=== PATIENT | female | born 1990 ===

== ENCOUNTER 2017-11-01 07:55 | Inpatient (IN) | payer OTHER ==
[2017-11-01 09:42] LABS: BASO % 0.3 % (0.0-2.0); EOS # 0.2 K/uL (0.0-0.7); HEMOGLOBIN 12.4 g/dL (11.0-16.0); LYMPH # 1.9 K/uL (1.0-4.3); LYMPH % 17.9 % (20.0-40.0); MEAN CELL VOLUME 87.8 fL (81.0-99.0); MEAN CORPUSCULAR HEMOGLOBIN 30.8 pg (27.0-31.0); MEAN CORPUSCULAR HGB CONC 35.1 g/dL (33.0-37.0); MEAN PLATELET VOLUME 9.5 fL (7.2-11.7); MONO # 0.7 K/uL (0.0-0.8); MONO % 7.2 % (0.0-10.0); NEUT # 7.5 K/uL (1.8-7.0); NEUT % 72.6 % (50.0-75.0); RBC 4.04 Mil/uL (3.80-5.20); RED CELL DISTRIBUTION WIDTH 16.9 % (11.5-14.5); WHITE BLOOD COUNT 10.4 K/uL (4.8-10.8)
[2017-11-01 09:48] LABS: SQUAMOUS EPITHIAL 4 /hpf (0-5); URINE BILIRUBIN NEGATIVE (NEGATIVE); URINE BLOOD NEGATIVE (NEGATIVE); URINE CLARITY Clear (Clear); URINE COLOR Yellow (YELLOW); URINE GLUCOSE (UA) NORMAL (Normal); URINE LEUKOCYTE ESTERASE NEG Leu/uL (Negative); URINE PROTEIN NEGATIVE (NEGATIVE); URINE UROBILINOGEN NORMAL mg/dL (0.2-1.0)
[2017-11-01 09:53] LABS: ALB/GLOB RATIO 0.9 (1.0-2.1); ALBUMIN 3.1 g/dL (3.5-5.0); ALT/SGPT 16 U/L (9-52); AST/SGOT 28 U/L (14-36); BLOOD UREA NITROGEN 9 mg/dL (7-17); GFR AFRICAN-AMERICAN > 60; GFR NON-AFRICAN AMERICAN > 60
[2017-11-01] MEDS: Dextrose 5%/Lactated Ringer's 1,000 ML IV SCH (10:05)
--- NOTE | 2017-11-01 10:20 | OBHP ---
Datetime: 11/01/2017 10:15 IP Adm Impression: Term, intrauterine IP Admit Plan: Admit to unit Admit Comment, IP Provider: @ 38 wks GA hx of GDMA2 on glburide c/o vaginal bleeding and dsicha rge since Wednesday mroning and crmaping increaseing intensty adn fruqency, bright red, no blood clots w ith cramping q 5-10 min 6/10, deisre pain medicaion. pt dnie slof, +FM OB: GDMA2 REPORTS ANALYST: dnies hx of anobmral pap, fiboidf,s ovairna cyst, STI PMH: RA, GDMA2 PSH: dnies MEDS: PNV, glyburide SHX: negaitve etoh/tobacco.drugs NKDA A/P @ 38 wks GA with IOL for GDMA and oligohydrmaisn -admit to L+D curator [facility], ivf bedside sonogram katia 4.5cm, no evidcne of placenta previa cytoce pain mangment con tcurent mange blood glucose q 4 hour D5LR Pelvic Type - PN: Adequate Extremities - PN: Normal Abdomen - PN: Normal Back - PN: Normal Breast - PN: Normal Lungs - PN: Normal Heart - PN: Normal Thyroid - PN: Normal Neurologic - PN: Normal HEENT - PN: Normal General - PN: Normal Weight - Estimated: 3400 Presentation-Admit: Vertex FHR - Baseline A Provider: 140 Gestation - Est Wks by US: 38.0 IP Hx Assessment: The History has been Reviewed and is Current EGA AdmitDate IP: 38.0 Vital Signs Provider: Reviewed; Within Normal Limits IP Chief Complaint: Suspected ruptured membranes NICHD Variability Prov Fetus A: Moderate 6-25bpm FHR Category Provider Fetus A: Category I NICHD Decel Fetus A IP Provider: None Dilatation, Provider: 2 Effacement, Provider: 50 Station, Provider: -3 Genitourinary Exam: Normal DTRs - PN: Normal
[2017-11-01] MEDS ORDERED: Fentanyl/Bupivacaine HCl 250 ML EPI ONE (12:34)
[2017-11-01] MEDS ORDERED: Bupivacaine HCl 0.25% PF (30 ml) Inj ONE (12:38)
[2017-11-01] MEDS ORDERED: Bupivacaine HCl 0.25% PF (10 ml) Inj ONE (12:39)
--- NOTE | 2017-11-01 12:51 | OBPN ---
Datetime: 11/01/2017 12:49 IP Progress Impression: Normal progression of labor IP Progress Plan: Continue present management Membranes, Provider: Intact FHR - Baseline A Provider: 130 Gestation - Est Wks by US: 38.0 IP Progress Note Comment: pt sharon and examien rperots pain is 03/30 requesitn medicaion , vss fs wnl ve; 4cm A/P @ 38 wks GA IOL for GDMA s/p cytotec for pain mangment, epidural consult cont current mangnet Vital Signs Provider: Reviewed; Within Normal Limits NICHD Variability Prov Fetus A: Moderate 6-25bpm Dilatation, Provider: 4 Effacement, Provider: 60 Station, Provider: -2 NICHD Decel Fetus A IP Provider: None Datetime: 11/01/2017 10:15 Weight - Estimated: 3400 Presentation-Admit: Vertex FHR Category Provider Fetus A: Category I
[2017-11-01] MEDS ORDERED: Oxytocin 30 UNIT 30 UNITS/500 ML BAG IV SCH (14:15)
[2017-11-01] MEDS ORDERED: Oxytocin 30 UNIT 30 UNITS/500 ML BAG IV ONE (14:22)
--- NOTE | 2017-11-01 18:01 | OBPN ---
Datetime: 11/01/2017 17:59 IP Progress Impression: Normal progression of labor IP Progress Plan: Continue present management Membranes, Provider: Ruptured FHR - Baseline A Provider: 135 Gestation - Est Wks by US: 38.0 IP Progress Note Comment: pt sharon and examiend c/o prssure s/p peidural VSS bloodglucse 78 VE: 9/100/0 A/P @ 38 wks GA GDMA in acitve labor -con tcurrent managment Vital Signs Provider: Reviewed; Within Normal Limits NICHD Variability Prov Fetus A: Moderate 6-25bpm Dilatation, Provider: 9 Effacement, Provider: 100 Station, Provider: 0
[2017-11-01] MEDS ORDERED: cefOXitin IV 2 gm in Saline 2 GM in Sodium Chloride 0.9% 50 ML IV STA (21:21)
[2017-11-01] MEDS ORDERED: Sodium Citrate/Citric Acid 15 ml Sol PO STA (21:21)
[2017-11-01] MEDS ORDERED: Sodium Citrate/Citric Acid 15 ml Sol ONE (21:33)
[2017-11-01] MEDS ORDERED: cefOXitin IV 2 gm in Saline 2 GM/50 ML BAG IVPB ONE (21:33)
[2017-11-01] MEDS ORDERED: cefOXitin IV 2 gm in Saline 2 GM in Sodium Chloride 0.9% 100 ML IV STA (21:34)
--- NOTE | 2017-11-01 21:35 | OBPN ---
Datetime: 11/01/2017 21:26 IP Progress Impression: Arrest of dilatation/descent IP Informed Consent Obtain: Section Delivery IP Progress Plan: Deliver- Section Membranes, Provider: Ruptured FHR - Baseline A Provider: 150 Gestation - Est Wks by US: 38.0 Presentation-Admit: Vertex IP Progress Note Comment: pt seen and examiend , arrest of desecent r/ba//i of pltcs dw patient consent obtained preop antioics abdomian prep hooks to graivty scs Vital Signs Provider: Reviewed; Within Normal Limits NICHD Variability Prov Fetus A: Moderate 6-25bpm Dilatation, Provider: 10 Effacement, Provider: 100 Station, Provider: 0
[2017-11-01] MEDS ORDERED: Oxytocin 20 units in LR 2,000 ML IV ONE (21:44)
--- NOTE | 2017-11-01 22:31 | DELATT ---
Datetime: 11/01/2017 09:05 Del Note Departure Status: Nursery Del Note Time: 30 Del Note Status: term male inf of diabetic mother on glyburide Del Note Attendant 2: Misael Wisdom Note Attendant Role 2: MD Farris Attendant Role 1: MD Farris Attendant 1: Deepak Farris Reason for Attend Other: primary Del Note Interventions Oth: Dr Johan Lawrence asked me to attend this primary c/s done because of failure t o descent Del Note Interventions: Assessment; Stimulation; Drying Del Note Reason for Attending: Section ARTURO/NICU Del Atten Note Adm
[2017-11-01] MEDS ORDERED: Morphine 1 mg/ml preservative-free Inj(Duramorph) ONE (22:43)
--- NOTE | 2017-11-01 22:50 | NBADN ---
Datetime: 11/01/2017 22:30 Nsy Prov Gen Appearance: Within Normal Limits Nsy Prov Gen Appearance: Within Normal Limits Nsy Prov Skin: Within Normal Limits Nsy Prov Neuro: Normal Tone; [place]; Grasp; Root; Suck Nsy Prov Musculoskeletal: Within Normal Limits; Full Range of Motion; Spontaneous Movement All Extre mities; Intact Clavicles; Clavicles without Crepitus; Gluteal Folds Symmetrical; Spine Within Normal Limits; No Sacral Dimple/Cyst Nsy Prov Head: Normal Fontanelles; Normocephalic; Sutures WNL Nsy Prov EENT: Mouth Within Normal Limits; Ears Within Normal Limits; Eyes Within Normal Limits; Eye s Red Reflex Bilaterally; Nose Within Normal Limits; Face Within Normal Limits Nsy Prov Cardiovascular: Within Normal Limits; Normal Pulses Nsy Prov Respiratory: Within Normal Limits Nsy Prov GI: Within Normal Limits; Soft; Normal Liver; Non Palpable Spleen; Patent Anus Nsy Prov Umbilicus: Within Normal Limits; Three Vessel Cord Nsy Prov : Normal Male Genitalia Nsy Prov Impression: Healthy Term ; Vital Signs Appropriate; Bonding Appropriately; Voiding a nd Stooling Nsy Prov Plan: Continue Bascom Care Nsy Prov Impression/Plan Details: term male inf of diabetic mother Nsy Prov Laboratory: accucheck Datetime: 11/01/2017 09:05 Mother's Rule Inc Maternal Age: Age >=35 at [place] not specified Mother's Rule Thalassemia: Thalassemia History not specified Mother's Rule Neural Tube Defect: Neural Tube Defect History not specified Mother's Rule Congenital Heart: Congenital Heart Defect not specified Mother's Rule Down Syndrome: Down Syndrome History not specified Mother's Rule Sánchez-Sachs: Sánchez-Sachs History not specified Mother's Rule Jose R: Jose R History not specified Mother's Rule Familial Dysauto: Familial Dysautonomia History not specified Mother's Rule Sickle Cell: Sickle Cell Disease/Trait History not specified Mother's Rule Hemophilia: Hemophilia/Blood Disorder History not specified Mother's Rule Muscular Dystrophy: Muscular Dystrophy History not specified Mother's Rule Cystic Fibrosis: Cystic Fibrosis History not specified Mother's Rule Vestal's Chor: Vestal's Chorea History not specified Mother's Rule Mental Retardation: Mental Retardation/Autism History not specified Mother's Rule Fragile X: Fragile X Testing History not specified Mother's Rule Oth Inherited DO: Other Inherited/Chromosomal Disorders not specified Mother's Rule Maternal Metabolic: Maternal Metabolic History not specified Mother's Rule FOB Defects: Pt Father or FOB Defect History not specified Mother's Rule Hx Stillborn MBL: Loss/Stillborn History not specified Mother's Rule Other Genetic Hx: Other Genetic History not specified Mother's Rule Drugs/Medications: Drugs/Medications History not specified Mother's Rule Gonorrhea: Gonorrhea History Not Specified Mother's Rule Chlamydia: Chlamydia History not specified Mother's Rule Syphilis: Syphilis History not specified Mother's Rule HIV/AIDS Exp: HIV/Aids Exposure not specified Mother's Rule HPV: Human Papillomavirus History not specified Mother's Rule Genital Herpes: Genital Herpes not specified Mother's Rule TB: Tuberculosis History not specified Mother's Rule Hepatitis: Hepatitis History Not Specified Mother's Rule Rash or Viral Ill: Rash or Viral Illness History not specified Mother's Rule Diabetes: Diabetes History not specified Mother's Rule Hypertension MBL: History of Hypertension Not Specified Mother's Rule Heart Disease: Heart Disease History not specified Mother's Rule Autoimmune: Autoimmune Disorder History not specified Mother's Rule Kidney Disease: History of Kidney Disease/UTI not specified Mother's Rule Neurologic: Neurologic/Epilepsy Disorders not specified Mother's Rule Psych Disorders: Psychiatric Disorder History not specified Mother's Rule Depression/PP Dep: Depression/ Depression History not specified Mother's Rule Hepaitis/tLiver: History of Hepatitis/Liver Disease not specified Mother's Rule Varicos/Phlebitis: Varicosities/Phlebitis History Not Specified Mother's Rule Thyroid Dysfunct: Thyroid Dysfunction not specified Mother's Rule Trauma/Violence: Trauma/Violence History Not Specified Mother's Rule Blood Transfusion: Blood Transfusion History not specified Mother's Rule Sensitization: D (Rh) Sensitization not specified Mother's Rule Pulmonary: Pulmonary (Asthma, TB) History not specified Mother's Rule Breast: Breast History not specified Mother's Rule Event Lighting Specialist Surgery: Event Lighting Specialist Surgery Hx not specified Mother's Rule Hosp/Surgery: Hospitalization/Surgery History not specified Mother's Rule Anesthetic Comp: Anesthetic Complications Hx not specified Mother's Rule Abnormal Pap: Abnormal Pap Smear not specified Mother's Rule Uterine Anomaly: Uterine Anomaly/ALIA not specified Mother's Rule Infertility: Infertility Not Specified Mother's Rule ART Treatment: ART Treatment History not specified Mother's Rule Other Med Disease: Other Medical Diseases History not specified Mother's Rule Family History: Significant Family History not specified
--- NOTE | 2017-11-01 22:52 | OBDS ---
MATERNAL INFORMATION Provider Comments: PLTCS live make ifnat apgars 9,9 pediatircian presnet for delivery, ebl 800 ml compound presnstation arrest of descent weight of 6lbs 11 ounces LABOR SUMMARY EDC: 11/15/2017 00:00 No. Babies in Womb: 1 Attempted: No Labor Anesthesia: Epidural LABOR INFORMATION Reason for Induction: Maternal Diabetes Onset of Labor: 11/01/2017 11:56 Complete Dilatation: 11/01/2017 17:51 Cervical Ripening Agents: Cytotec @ (Annotations: [address] otero intravaginally) Oxytocin: Augmentation Group B Beta Strep: Negative Antibiotics # of Doses: 0 Antibiotics Time of Last Dose: 0 Steroids Given: None Reason Steroids Not Administered: Not Applicable MEMBRANES Membranes Rupture Method: Spontaneous Rupture of Membranes: 11/01/2017 14:58 Length of Rupture (hrs): 7.00 Amniotic Fluid Color: Clear Amniotic Fluid Amount: None Amniotic Fluid Odor: None STAGES OF LABOR Stage 1 hrs: 5 Stage 1 min: 55 Stage 2 hrs: 4 Stage 2 min: 7 Stage 3 hrs: 0 Stage 3 min: 1 Total Time in Labor hrs: 10 Total Time in Labor min: 3 BABY A INFORMATION Infant Delivery Date/Time: 11/01/2017 21:58 Method of Delivery: Born in Route : No : N/A Forceps: N/A Vacuum Extraction: N/A Shoulder Dystocia : No SHOULDER DYSTOCIA BABY A Delivery Date/Time: 11/01/2017 21:58 PRESENTATION/POSITION BABY A Presentation: Cephalic Cephalic Presentation: Vertex Breech Presentation: N/A PLACENTA INFORMATION BABY A Placenta Delivery Time : 11/01/2017 21:59 Placenta Method of Delivery: Manual Removal Placenta Status: Delivered SCORES BABY A Heart Rate 1 min: >100 bpm Resp Effort 1 min: Good Cry Reflex Irritability 1 min: Cough or Sneeze or Pulls Away Muscle Tone 1 min: Active Motion Color 1 min: Body [place], Extremities Blue Resuscitation Effort 1 min: N/A SCORE 1 MIN: 9 Heart Rate 5 min: >100 bpm Resp Effort 5 min: Good Cry Reflex Irritability 5 min: Cough or Sneeze or Pulls Away Muscle Tone 5 min: Active Motion Color 5 min: Body [place], Extremities Blue Resuscitation Effort 5 min: N/A SCORE 5 MIN: 9 INFANT INFORMATION BABY A Gestational Age at Delivery: 38.0 Gestational Status: Term Infant Outcome : Liveborn Infant Condition : Stable Sex: Male IDENTIFICATION/MEDS BABY A ID Band Number: [id number] ID Band Location: Left Leg; Left Arm Sensor Applied: Yes Sensor Number: [id number] Sensor Location : Cord Clamp Vitamin K Given : Not Given Erythromycin Given: Not Given WEIGHT/LENGTH BABY A Birthweight (gms): 3030 Weight (lb): 6 Infant Weight (oz): 11 Length Inches: 19.00 Length cms: 48.3 CORD INFORMATION BABY A No. Cord Vessels: #3 Nuchal Cord : N/A Cord Blood Taken: Yes (Annotations: Data stored by N on behalf of user) ASSESSMENT BABY A Complications: None Physical Findings at Delivery: Within Normal Limits Respirations: Appears Normal Securities Dealer/ALS Called : Yes Infant Care By: DR MARTINEZ / DALY HSU RN Transferred To: Nursery
--- NOTE | 2017-11-01 22:58 | PCM.SURG1 ---
Surgeon's Initial Post Op Note - Surgeon's Notes Surgeon: Catarina Lawrence MD Philosophy Faculty: Elías Douglas MD Type of Anesthesia: Other Pre-Operative Diagnosis: Term intrautiern eprengancy, arrest of descent, GDMA2 Operative Findings: live male , agpar 9,9 compound presentation weight of 6lbs 1 1ounces wrapper dipper present for delivery. normal appearing uteurs, tubes and ovariens bilaterally. Dr Ugo Douglas was hospital clinic assistant and prsent for entire case and essential in gainign entry, retraction, expsure, holing bladder blade, closeing all layers, pushing head up , obtianign hemostias. Post-Operative Diagnosis: same as above Operation Performed: Primary Low transverse cesearen section Specimen/Specimens Removed: placenta Estimated Blood Loss: EBL {In ML}: 800 Blood Products Given: N/A Drains Used: No Drains Post-Op Condition: Good Date of Surgery/Procedure: 11/01/17 Time of Surgery/Procedure: 21:30
--- NOTE | 2017-11-02 06:59 | OBPPN ---
Datetime: 11/02/2017 06:58 PP Pain Prov: Within normal limits PP Nausea Prov: Denies PP Flatus Prov: No PP BM Prov: No PP Breasts Prov: Normal PP Heart Prov: Normal PP Lungs Prov: Normal PP Abdomen/Uterus Prov: Normal PP Lochia Prov: Normal PP Vulva/Perineum Prov: Normal PP CVA Tenderness Prov: Normal PP Extremities Prov: Normal PP C/S Incision Prov: Normal PP Progress Prov: Normal PP Impression Prov: Normal progression PP Plan Prov: Continue present management PP Progress Note Prov: pt seen and examiend adn reprots pain controlled with medicaion. pt dnei any fever, chills, naue, vomitign, cp, sob. pt not yet ambaitng, +hooks cathether, not passign flatu, toe lrating liuid and is breat feeding VSS PE GEN NAD AA ox 3 RESP CTAB?l CVS: RRR< +S1/S2 BREAST NT, NOn engorage db/l ABD: soft, NT/ND, +BS FUNDUS: Firm, at level o fumbilcs VE: minimal lochia, non foul smelling EXT: no calef tendnerness, engaive homans sign A/P s/p PLTCS POD #1 with RA -Pain manamgnet: perocet/motirn -Advance diet at tolerated -dc hooks -encourage breast feedign adn mabuaiton -bowel ergime -Incentive spirometer -lacation consulta -RA meds -am labs -cont routine postop care Vital Signs Provider PP: Reviewed; Within Normal Limits
[2017-11-02 08:19] LABS: BASO % 0.1 % (0.0-2.0); LYMPH # 1.7 K/uL (1.0-4.3); MEAN CORPUSCULAR HEMOGLOBIN 30.1 pg (27.0-31.0); MEAN CORPUSCULAR HGB CONC 34.2 g/dL (33.0-37.0); MONO # 0.8 K/uL (0.0-0.8); MONO % 4.3 % (0.0-10.0); NEUT # 16.3 K/uL (1.8-7.0); NEUT % 86.6 % (50.0-75.0); PLATELET COUNT 163 K/uL (130-400); RBC 3.41 Mil/uL (3.80-5.20); RED CELL DISTRIBUTION WIDTH 16.9 % (11.5-14.5)
[2017-11-02 08:20] LABS: HEMOGLOBIN 10.3 g/dL (11.0-16.0); WHITE BLOOD COUNT 18.8 K/uL (4.8-10.8)
[2017-11-02 08:25] LABS: ALB/GLOB RATIO 0.7 (1.0-2.1); ALT/SGPT 30 U/L (9-52); AST/SGOT 43 U/L (14-36); BLOOD UREA NITROGEN 6 mg/dL (7-17); CALCIUM 8.6 mg/dl (8.6-10.4); GFR AFRICAN-AMERICAN > 60; GFR NON-AFRICAN AMERICAN > 60
--- NOTE | 2017-11-02 09:00 | OP ---
PROCEDURE DATE: 11/01/2017 SURGEON: Catarina Lawrence MD JOURNEYMAN MACHINIST: Elías Douglas MD TYPE OF ANESTHESIA: Combined spinal and epidural. PREOPERATIVE DIAGNOSES: Term intrauterine , arrest of descent, gestational diabetic type 2, on glyburide. POSTOPERATIVE DIAGNOSES: Term intrauterine , arrest of descent, gestational diabetic type 2, on glyburide. OPERATIVE FINDINGS: Live male infant, Apgars 9 and 9, oblique presentation, weight 6 pounds 11 ounces, ice guard skating rink present for delivery. Normal-appearing uterus, tubes and ovaries bilaterally. Dr. Elías Douglas, the surgical assist, was present for the entire case and was essential in gaining entry, retraction, exposure, holding the bladder blade, closing all layers, pushing the head up, obtaining hemostasis. OPERATION PERFORMED: Primary low transverse section. SPECIMEN REMOVED: Placenta. ESTIMATED BLOOD LOSS: 800 mL. BLOOD PRODUCTS: None. COMPLICATIONS: None. DESCRIPTION OF PROCEDURE: The patient was in induction of labor secondary to gestational diabetes and was found to be arrest of descent. The risks, benefits, alternatives, and indications of section discussed with the patient. The patent consented and was transferred to the operating room where she was given preoperative prophylactic antibiotic. A Pfannenstiel skin incision was made with a scalpel and carried down to the underlying layer of the fascia with the Bovie. The fascia was incised in the midline and the incision was extended laterally with the Bovie. The rectus muscle was then bluntly in the midline bluntly. The peritoneum was identified in clear space. The incision was extended laterally and superiorly, there was good visualization of the bladder. The lower end of the Heather was then inserted. The lower uterine segment was incised in a transverse fashion. The lower uterine segment was incised laterally and bluntly. The assistant professor of art's hand entered into the vagina and pushed the head up and head was delivered compound with the arm through the uterine incision simultaneously followed by delivery of shoulders, and delivery of body. Both oral and nasal passages were bulb suctioned. The umbilical cord was clamped and cut. Baby was handed off to the awaiting ice guard skating rink. Cord blood and cord gases were collected and sent x2. The placenta was then delivered manually. The uterus was exteriorized, cleared of clots and debris. The uterine incision was repaired with 0-Vicryl in a running continuous locked fashion. A second layer of the same suture was used to close the uterus in a running imbricated manner. Good hemostasis was noted at the uterine incision site. The uterus was then returned to the abdomen. There was normal tubes and ovaries. The paracolic gutters were cleared of all clots and debris. The peritoneum was reapproximated with 2-0 chromic in a running continuous fashion. The rectus was reapproximated and closed with 2-0 chromic in an interrupted manner. The fascia was reapproximated with 0-Vicryl in running subcuticular fashion. The subcutaneous layer was closed with 2-0 plain in an interrupted manner. Skin was reapproximated and closed with 4-0 Monocryl in a running subcuticular fashion. At the end of the procedure, all needles, sponge, and instrument counts were noted as correct x2. The patient tolerated the procedure well and was transferred to the recovery room in stable condition. Catarina Lawrence MD
[2017-11-02 09:59] LABS: ANISOCYTOSIS SLIGHT; BANDS 11 % (0-2); LYMPHOCYTE 10 % (20-40); MONOCYTE 1 % (0-10); NEUTROPHIL 78 % (50-75); PLATELET ESTIMATE NORMAL (NORMAL); TOTAL CELLS COUNTED 100
[2017-11-02] MEDS: Simethicone 80 mg Chewtab PO SCH ×4 (11:04→22:38)
[2017-11-02] MEDS: Oxycodone/Acetaminophen 5/325 mg Tab PO PRN ×3 (11:11→23:03)
[2017-11-02] MEDS: AMPicillin 2 GM in Sodium Chloride 100 ML IVPB SCH ×3 (11:30→23:20)
[2017-11-03] MEDS: Oxycodone/Acetaminophen 5/325 mg Tab PO PRN ×4 (04:02→21:05)
[2017-11-03] MEDS: AMPicillin 2 GM in Sodium Chloride 100 ML IVPB SCH ×4 (04:33→23:47)
[2017-11-03 07:50] LABS: BASO % 0.2 % (0.0-2.0); EOS # 0.2 K/uL (0.0-0.7); EOS % 0.9 % (0.0-4.0); HEMOGLOBIN 9.7 g/dL (11.0-16.0); LYMPH # 1.9 K/uL (1.0-4.3); LYMPH % 9.6 % (20.0-40.0); MEAN CELL VOLUME 88.1 fL (81.0-99.0); MEAN CORPUSCULAR HEMOGLOBIN 30.8 pg (27.0-31.0); MEAN PLATELET VOLUME 8.4 fL (7.2-11.7); MONO % 4.9 % (0.0-10.0); NEUT # 17.1 K/uL (1.8-7.0); NEUT % 84.4 % (50.0-75.0); PLATELET COUNT 164 K/uL (130-400); RBC 3.16 Mil/uL (3.80-5.20); RED CELL DISTRIBUTION WIDTH 17.1 % (11.5-14.5); WHITE BLOOD COUNT 20.3 K/uL (4.8-10.8)
[2017-11-03 08:20] LABS: ALB/GLOB RATIO 0.8 (1.0-2.1); ALBUMIN 2.1 g/dL (3.5-5.0); ALT/SGPT 31 U/L (9-52); AST/SGOT 52 U/L (14-36); BLOOD UREA NITROGEN 5 mg/dL (7-17); CALCIUM 8.4 mg/dl (8.6-10.4); GFR AFRICAN-AMERICAN > 60; GFR NON-AFRICAN AMERICAN > 60
[2017-11-03 10:02] LABS: ANISOCYTOSIS SLIGHT; BANDS 4 % (0-2); LYMPHOCYTE 10 % (20-40); MONOCYTE 5 % (0-10); NEUTROPHIL 81 % (50-75); PLATELET ESTIMATE NORMAL (NORMAL); TOTAL CELLS COUNTED 100
[2017-11-03] MEDS: Simethicone 80 mg Chewtab PO SCH ×4 (10:10→23:48)
[2017-11-03 16:09] LABS: SQUAMOUS EPITHIAL 2 /hpf (0-5); URINE BACTERIA FEW (<OCC); URINE BILIRUBIN NEGATIVE (NEGATIVE); URINE BLOOD 2+ (NEGATIVE); URINE CLARITY Clear (Clear); URINE COLOR Yellow (YELLOW); URINE GLUCOSE (UA) NORMAL (Normal); URINE LEUKOCYTE ESTERASE TRACE Leu/uL (Negative); URINE PROTEIN NEGATIVE (NEGATIVE); URINE UROBILINOGEN NORMAL mg/dL (0.2-1.0)
[2017-11-03 17:20] LABS: BASO # 0.1 K/uL (0.0-0.2); BASO % 0.3 % (0.0-2.0); EOS # 0.4 K/uL (0.0-0.7); HEMOGLOBIN 9.2 g/dL (11.0-16.0); LYMPH # 2.3 K/uL (1.0-4.3); MEAN CELL VOLUME 88.7 fL (81.0-99.0); MEAN CORPUSCULAR HEMOGLOBIN 29.8 pg (27.0-31.0); MEAN CORPUSCULAR HGB CONC 33.5 g/dL (33.0-37.0); MEAN PLATELET VOLUME 8.6 fL (7.2-11.7); MONO % 5.1 % (0.0-10.0); NEUT # 15.5 K/uL (1.8-7.0); NEUT % 80.6 % (50.0-75.0); RBC 3.08 Mil/uL (3.80-5.20); RED CELL DISTRIBUTION WIDTH 16.8 % (11.5-14.5); WHITE BLOOD COUNT 19.2 K/uL (4.8-10.8)
[2017-11-03] MEDS ORDERED: Bisacodyl 5mg EC Tab PO ONE (22:54)
[2017-11-04] MEDS: Dextrose 5%/Lactated Ringer's 1,000 ML IV SCH (05:34)
[2017-11-04] MEDS: Oxycodone/Acetaminophen 5/325 mg Tab PO PRN ×3 (05:45→21:26)
[2017-11-04] MEDS: AMPicillin 2 GM in Sodium Chloride 100 ML IVPB SCH ×3 (06:23→16:08)
[2017-11-04 08:31] LABS: BASO % 0.2 % (0.0-2.0); EOS # 0.4 K/uL (0.0-0.7); EOS % 2.7 % (0.0-4.0); HEMOGLOBIN 8.9 g/dL (11.0-16.0); LYMPH # 2.9 K/uL (1.0-4.3); LYMPH % 18.8 % (20.0-40.0); MEAN CELL VOLUME 88.2 fL (81.0-99.0); MEAN CORPUSCULAR HEMOGLOBIN 30.4 pg (27.0-31.0); MEAN CORPUSCULAR HGB CONC 34.5 g/dL (33.0-37.0); MEAN PLATELET VOLUME 8.6 fL (7.2-11.7); MONO # 0.7 K/uL (0.0-0.8); MONO % 4.6 % (0.0-10.0); NEUT # 11.2 K/uL (1.8-7.0); NEUT % 73.7 % (50.0-75.0); NRBC % 0.1 % (0.0-2.0); RBC 2.94 Mil/uL (3.80-5.20); RED CELL DISTRIBUTION WIDTH 16.5 % (11.5-14.5); WHITE BLOOD COUNT 15.2 K/uL (4.8-10.8)
[2017-11-04 08:49] LABS: ALB/GLOB RATIO 0.7 (1.0-2.1); ALBUMIN 2.1 g/dL (3.5-5.0); ALT/SGPT 24 U/L (9-52); AST/SGOT 39 U/L (14-36); BLOOD UREA NITROGEN 3 mg/dL (7-17); CALCIUM 7.5 mg/dl (8.6-10.4); GFR AFRICAN-AMERICAN > 60; GFR NON-AFRICAN AMERICAN > 60
[2017-11-04] MEDS: Simethicone 80 mg Chewtab PO SCH ×4 (09:25→21:25)
[2017-11-04] MEDS ORDERED: Potassium Chloride 20 mEq ER Tab PO ONE (10:00)
[2017-11-04 17:01] LABS: BASO % 0.3 % (0.0-2.0); EOS # 0.5 K/uL (0.0-0.7); EOS % 3.6 % (0.0-4.0); LYMPH % 22.8 % (20.0-40.0); MEAN CELL VOLUME 88.9 fL (81.0-99.0); MEAN CORPUSCULAR HEMOGLOBIN 30.3 pg (27.0-31.0); MEAN CORPUSCULAR HGB CONC 34.1 g/dL (33.0-37.0); MEAN PLATELET VOLUME 8.1 fL (7.2-11.7); MONO # 0.5 K/uL (0.0-0.8); MONO % 3.9 % (0.0-10.0); NEUT # 9.1 K/uL (1.8-7.0); NEUT % 69.4 % (50.0-75.0); RBC 3.28 Mil/uL (3.80-5.20); RED CELL DISTRIBUTION WIDTH 17.3 % (11.5-14.5); WHITE BLOOD COUNT 13.1 K/uL (4.8-10.8)
[2017-11-05] MEDS ORDERED: Oxycodone/Acetaminophen 5/325 mg Tab PO PRN (06:48)
[2017-11-05] MEDS: Simethicone 80 mg Chewtab PO SCH (10:25)
[2017-11-05 11:23] VITALS: BP 100/66; PULSE 79; RESP 18; TEMP 97.2; O2SAT 97
--- NOTE | 2017-11-06 08:07 | OBPPN ---
Datetime: 11/06/2017 08:07 PP Pain Prov: Within normal limits PP Nausea Prov: Denies PP Flatus Prov: Yes PP Breasts Prov: Normal PP Heart Prov: Normal PP Lungs Prov: Normal PP Abdomen/Uterus Prov: Normal PP Lochia Prov: Normal PP Vulva/Perineum Prov: Normal PP CVA Tenderness Prov: Normal PP Extremities Prov: Normal Datetime: 11/03/2017 15:59 PP BM Prov: No PP C/S Incision Prov: Normal PP Progress Prov: Normal PP Comments Phys Exam Prov: Abdomen: Soft, appropriately tender (s/p C/S), + Bowel sounds. Binder in placed and incision, is clean, dry and intact PP Progress Note Prov: Patient was seen and examined at bedside. Patient reports pain control with n o acute issues. Patient reports very mild lochia, passing flatus, urinating without difficulties, amb ulating and tolerating diet. Patient denies nausea, vomiting, fever, chills, chest pain, SOB, dizzin ess and calf tenderness. Physical Exam: Gen: NAD, AAOX3 Cardio: RRR, +s1, +s2, no murmurs Pulm: CTA bilaterally Abdomen: Soft, appropriately tender (s/p C/S), + Bowel sounds. Binder in placed and incision, is c lean, dry and intact Ext: No cyanosis, no edema or cyanosis VS: Temp: 98.6, HR: 94, BP: 102/64, O2: 98%, RR: 18 Labs: 10.4>12.4/35.5<174, 18.8>10.3/30.0<163 (Bandemia=11), 20.3>9.7/27.8<164 (Bandemia=4), A+, Rubella non- immune A/P: 27 year old at 38 weeks, GDMA2 who is now s/p primary lower transverse POD#2 d ue to arrest of decent 1. Afebrile, stable 2. Bandemia resolving, continue IV abx 3. Anemia, Ferrous sulfate 325mg PO BID 4. Pain well-controlled 5. Monitor for bowel function 6. Encourage out of bed, walking and use of incentive spirometer 7. Encourage breast feeding 8. Need MMR vaccine prior to discharge 9. Continue present management . 10. Anticipate discharge tomorrow 11. Plans discussed with attending, Dr. Sherry Guerra, DO PGY-1 agree with above pt sharon and emaiend routine postop care
--- NOTE | 2017-11-06 08:08 | OBPPN ---
Datetime: 11/06/2017 08:08 PP Pain Prov: Within normal limits PP Nausea Prov: Denies PP Flatus Prov: Yes PP BM Prov: No PP Breasts Prov: Normal PP Heart Prov: Normal PP Lungs Prov: Normal PP Abdomen/Uterus Prov: Normal PP Lochia Prov: Normal PP Vulva/Perineum Prov: Normal PP CVA Tenderness Prov: Normal PP Extremities Prov: Normal PP C/S Incision Prov: Normal PP Progress Prov: Normal Vital Signs Provider PP: Reviewed Datetime: 11/06/2017 08:07 PP Impression Prov: Normal progression PP Plan Prov: Continue present management PP Progress Note Prov: Delyaed entry Pt with fever overnight and elukocsytos, Pt seen and examien carter morales pain controleld with med icain. pt ambulting, voiidng, passing flatus, tolerated diet, breast feeding, dneis any chills, nasu e, vomiting, and dneis any sadness or depression. VSS PE GEN NAD, AAO x 3 BREAST: NT, NOn engorged b/l RESP: CTAB/l CVS: RRR, +S1/S2 ABD: soft, NT, ND, +BS, no guarding, no rebound tenderness, no rigidity INCSION C/D/I healing well gege intact FUNDUS: firm, below level of umbilcus VE: Minimal lochai, non foul smelling EXT: negative homans' sign A/P s/p PLTCS POD #2 with endometriitsi amp, gent, clinida cbc k repalmemetn psotop manamgnet
--- NOTE | 2017-11-06 08:10 | OBPPN ---
Datetime: 11/06/2017 08:08 PP Impression Prov: Normal progression PP Plan Prov: Continue present management PP Progress Note Prov: Dealyed entry : tp with low grade fever last ngiht 100.6 Pt seen and examien carter reprots pain controleld with medicain. pt ambulting, voiidng, passing flatus, tolerated diet, br east feeding, dneis any chills, nasue, vomiting, and dneis any sadness or depression. VSS PE GEN NAD, AAO x 3 BREAST: NT, NOn engorged b/l RESP: CTAB/l CVS: RRR, +S1/S2 ABD: soft, NT, ND, +BS, no guarding, no rebound tenderness, no rigidity INCSION C/D/I healing well gege intact FUNDUS: firm, below level of umbilcus VE: Minimal lochai, non foul smelling EXT: negative homans' sign A/P s/p PLTCS POD #3 with endometriti fever cotn anticos cbc regualr diet rhematolgy IP PP Procedures: None
--- NOTE | 2017-11-06 08:11 | OBDCSUM ---
Datetime: 11/05/2017 09:05 Discharge Instructions, Provider: Routine instructions given Discharge Diagnosis, Provider: Term Delivered Contraception discussed, Prov: Yes Contraception after Delivery: Not Planning to Use
== END 2017-11-05 14:00 | disposition home or self-care (01) | DRG 765 ==
LOC: C.EROB 07:55 → C.4D 08:10 → C.4M 11-02 00:40
PROVIDERS: ADMIT Obstetrics & Gynecology; ATTEND Obstetrics & Gynecology
PROC: 10D00Z1 Extraction of Products of Conception, Low, Open Approach (ICD-10-PCS; principal; 2017-11-01)
DX: O24.429 Gestational diabetes mellitus in childbirth, unspecified control (principal); O99.12 Other diseases of the blood and blood-forming organs and certain disorders involving the immune mechanism complicating childbirth; O32.2XX0 Maternal care for transverse and oblique lie, not applicable or unspecified; O62.0 Primary inadequate contractions; O62.1 Secondary uterine inertia; O99.02 Anemia complicating childbirth; O99.344 Other mental disorders complicating childbirth; F32.9 Major depressive disorder, single episode, unspecified; Z3A.38 38 weeks gestation of pregnancy; D72.825 Bandemia; Z37.0 Single live birth